=== PATIENT | male | born 1985 | race Caucasian/White ===

== ENCOUNTER 2018-09-02 00:51 | Emergency (ER) | payer SELFPAY ==
[~2018-09-02] VITALS: Ht 165.1 cm; Wt 62.3 kg
[~2018-09-02 00:51] MED LIST: CLEOCIN HCL300 MG PO; NO HOME MEDICATIONS; NORCO 325 MG-51 TAB PO
[2018-09-02 01:02] VITALS: TEMP 97.2
[2018-09-02] MEDS ORDERED: CILOXAN 5 ML5 ML OD (02:19)
[2018-09-02 02:45] VITALS: BP 109/73; PULSE 56
== END 2018-09-02 02:45 | disposition home or self-care (01) ==
LOC: COL.ER 00:51
DX: T15.01XA Foreign body in cornea, right eye, initial encounter (principal); Z23 Encounter for immunization; Y92.009 Unspecified place in unspecified non-institutional (private) residence as the place of occurrence of the external cause

== ENCOUNTER 2018-09-23 19:44 | Emergency (ER) | payer SELFPAY ==
[~2018-09-23] VITALS: Ht 152.4 cm; Wt 63.6 kg
[~2018-09-23 19:44] MED LIST changes: +CILOXAN 5 ML5 ML OD
[2018-09-23 19:51] VITALS: TEMP 98.5
[2018-09-23] MEDS ORDERED: NORCO 325 MG-51 TAB PO (21:09)
[2018-09-23 21:29] VITALS: BP 109/75; PULSE 79
== END 2018-09-23 21:30 | disposition home or self-care (01) ==
LOC: COL.ER 19:44
DX: S43.102A Unspecified dislocation of left acromioclavicular joint, initial encounter (principal); R07.81 Pleurodynia; V86.59XA Driver of other special all-terrain or other off-road motor vehicle injured in nontraffic accident, initial encounter
CPT/HCPCS: J1170